=== PATIENT | female | born 1965 | race Caucasian/White ===

== ENCOUNTER 2017-01-16 23:08 | Emergency (ER) | payer OTHER ==
[~2017-01-16] VITALS: Ht 157.5 cm; Wt 91.0 kg
[2017-01-16 23:15] VITALS: Ht 157.5 cm; Wt 91.0 kg
[2017-01-17] MEDS ORDERED: ALBUTEROL 0.083% (NEB) 2.5 MG/3 ML AMP NEB STA ×2 (03:04)
[2017-01-17] MEDS ORDERED: predniSONE 20 MG TAB PO STA (03:04)
--- NOTE | 2017-01-17 03:14 | ERD ---
ER Documentation Chief Complaint Date/Time DATE: 01/17/17 TIME: 03:07 Chief Complaint cough x 1 week HPI 52-year-old female presents to the emergency department today with 3 day history of cough wheezing intermittent fever laryngitis body aches and headache. Patient reports that she has been coughing so hard she lost her voice. Patient reports that cough is not productive, denies history of seasonal allergies or asthma. Patient has not used an inhaler in the past. Denies chest pain, palpitations, shortness of breath or dizziness. ROS All systems reviewed and are negative except as per history of present illness. Medications Home Meds Active Scripts Albuterol Sulfate* (Ventolin HFA*) 18 Gm Hfa.aer.ad, 2 PUFF INHALATION Q4H, #1 INHALER Prov:WIN,CLARE 01/17/17 Prednisone* (Prednisone*) 20 Mg Tab, 40 MG PO DAILY for 4 Days, TAB Prov:WIN,CLARE 01/17/17 Allergies Allergies: Coded Allergies: No Known Allergy (Unverified , 01/16/17) PMhx/Soc History of Surgery: Yes () Anesthesia Reaction: No Hx Neurological Disorder: No Hx Respiratory Disorders: No Hx Cardiac Disorders: No Hx Psychiatric Problems: No Hx Miscellaneous Medical Probl: Yes (diabetes 2) Hx Alcohol Use: No Hx Substance Use: No Hx Tobacco Use: No Smoking Status: Never smoker Physical Exam Vitals Vital Signs Date Time Temp Pulse Resp B/P Pulse Ox O2 Delivery O2 Flow Rate FiO2 01/17/17 03:41 67 18 97 21 01/16/17 23:15 98.3 75 20 134/63 98 Vitals stable, triage notes reviewed Physical Exam Const: No acute distress Head: Atraumatic Eyes: Normal Conjunctiva, PERRLA, EOMI ENT: Tympanic membranes not visualized, cerumen impaction bilaterally. Nasal mucosa is edematous +2, pharynx injected, tonsils not visualized, mucous membranes moist Neck: Full range of motion..~ No meningismus. No cervical chain nodes Resp: Chest rises and falls symmetrically, wheezes with forced expiration, no egophony Cardio: Regular rate and rhythm, no murmurs Abd: Skin: Back: Ext: Neur: Awake and alert Psych: Normal Mood and Affect Results 24 hrs Current Medications Medications (Trade) Dose Ordered Sig/Ashley Route PRN Reason Start Time Stop Time Status Last Admin Dose Admin Albuterol (Proventil 0.083% (Neb)) 2.5 mg ONCE STAT NEB 01/17/17 03:04 01/17/17 03:08 DC 01/17/17 03:44 Albuterol (Proventil 0.083% (Neb)) 5 mg ONCE STAT NEB 01/17/17 03:04 01/17/17 03:40 DC Prednisone (Prednisone) 60 mg ONCE STAT PO 01/17/17 03:04 01/17/17 03:08 DC 01/17/17 04:13 Acetaminophen (Tylenol Tab) 650 mg ONCE ONCE PO 01/17/17 03:30 01/17/17 03:31 DC 01/17/17 04:13 Ipratropium [place] (Atrovent 0.02% (Neb)) 0.5 mg ONCE ONCE HHN 01/17/17 04:00 01/17/17 04:01 DC 01/17/17 03:44 Procedures/MDM This pleasant 52-year-old female presents to emergency department with 3 day history cough, wheezing, symptoms worse with lying down. Laryngitis, body aches. Patient reports that she is coughs so hard she has lost her voice. Differential diagnosis includes but not limited to pneumonia, bronchitis, wheezy bronchitis, flulike symptoms. Physical exam and history does not support pneumonia, no egophony or fever x-rays will not be obtained today. Patient receives albuterol, Atrovent unit dose hand-held nebulizer treatment, post evaluation presents with decreased wheezing, patient received 60 mg of prednisone and plan to be discharged home on 40 mg prednisone 4 days and albuterol MDI. I feel patient is appropriate for outpatient management follow- up with primary care physician. Increase fluids, increase rest, return to emergency room for fever, cough not responding to treatment. I feel the patient is stable for discharge at this time. I have discussed results, examination findings, the treatment plan with the patient and family present prior to discharge. Indications for emergent reevaluation, side effects of medication were also discussed. All questions were answered. Patient verbalizes understanding and agrees with plan of care. Departure Diagnosis: Primary Impression: Bronchitis Condition: Good Patient Instructions: Acute Bronchitis [facility] Additional Instructions: Thank you for for coming to [facility] for your care today. Please ask your nurse or provider if you have questions about your care today and do not leave until all your questions have been answered. Please use any medications given as directed and follow-up with your doctor (or the doctor you were referred to) in the next 2-3 days. If you do not have a primary care doctor you may follow up at the [facility] (listed below). You may also use motrin and tylenol as needed for fever and/or pain unless instructed otherwise by your provider or nurse. Indications for more urgent follow-up have been discussed, but you may return to the Emergency Department at ANY time for any worrisome or worsening symptoms. If you have abdominal pain, please know that no test or exam you received is perfect and you should follow up within 8 hours for continued pain. If you had any imaging studies today, such as an X-Ray or CT Scan, these studies will be reviewed later by a radiologist. You will be called if there are important findings that were not identified today, so make sure the contact information you provided at registration is correct. If you received any narcotic pain control medicine today, such as Vicodin, Morphine or Dilaudid, your coordination and judgment may be affected for a number of hours. Please do not drive or operate heavy machinery, and you may want someone to assist you at home. If you were given a prescription for narcotic medication, be aware that it is very addictive- use sparingly and only if necessary. CLARE WALDEN Jan 17, 2017 03:14
[2017-01-17] MEDS ORDERED: ALBU18HF INHALATION (03:15)
[2017-01-17] MEDS ORDERED: PRED20TA PO (03:15)
[2017-01-17] MEDS ORDERED: ACETAMINOPHEN 325 MG TAB PO ONE (03:30)
[2017-01-17] MEDS ORDERED: IPRATROPIUM (NEB) 0.5 MG/2.5 ML AMP HHN ONE (04:00)
[2017-01-17 05:12] VITALS: BP 128/70; PULSE 89; RESP 20; TEMP 98
== END 2017-01-17 05:12 | disposition home or self-care (01) ==
LOC: FTE 23:08
DX: J40 Bronchitis, not specified as acute or chronic (principal); E11.9 Type 2 diabetes mellitus without complications
CPT/HCPCS: 94664; J7512; Z7610

== ENCOUNTER 2018-01-24 09:32 | Emergency (ER) | END 2018-01-24 10:28 | disposition home or self-care (01) ==

== ENCOUNTER 2018-06-11 12:07 | Day surgery (SDC) | END 2018-06-11 17:51 | disposition home or self-care (01) ==

== ENCOUNTER 2018-06-12 11:32 | Emergency (ER) | END 2018-06-12 14:42 | disposition home or self-care (01) ==

== ENCOUNTER 2019-02-12 12:53 | Emergency (ER) | payer OTHER ==
[~2019-02-12] VITALS: Ht 160 cm; Wt 94.0 kg
[~2019-02-12 12:53] MED LIST: HYDR-4011 PO; NAPR-985 PO; VITAMIN D2
[2019-02-12 12:57] VITALS: Ht 160 cm; Wt 94.0 kg
[2019-02-12] MEDS ORDERED: FLUT9.9S NASAL (14:20)
--- NOTE | 2019-02-12 14:34 | ERD ---
ER Documentation Chief Complaint Chief Complaint C/o spit brownish secretion in the morning on and off. Ankur hernandez HPI 54-year-old female otherwise healthy presents to the emergency room with symptoms since November. She states that every morning she wakes up she has some brownish nasal congestion that she spits out. This occurs once when she wakes up in the morning and then does not occur during the rest of the day. The patient denies any other bleeding or bruising, no easy gum bleeding. Patient has no other complaints. Patient denies any hemoptysis, hematemesis, abdominal pain, melena or any other symptoms. ROS All systems reviewed and are negative except as per history of present illness. Medications Home Meds Active Scripts Fluticasone Propionate (Flonase Allergy Relief) 9.9 Ml [place].susp, 1 SPRAY NASAL DAILY for 7 Days, #1 BOTTLE TO EACH NOSTRIL Prov:ROMERO KENT MD 02/12/19 Hydrocodone/Acetaminophen ([place] 5-325 Tablet) 1 Each Tablet, 1 TAB PO Q6H PRN for PAIN, #7 TAB Prov:ANDRES VALDEZ MD 06/12/18 Naproxen* (Naprosyn*) 500 Mg Tablet, 500 MG PO BID PRN for PAIN AND/OR INFLAMMA TION, #30 TAB Prov:MELY WILLIAMSON PA-C 01/24/18 Reported Medications [Vitamin D2] No Conflict Check 06/11/18 Allergies Allergies: Coded Allergies: No Known Allergy (Unverified , 06/11/18) PMhx/Soc History of Surgery: Yes (GALLSTONE REMOVAL) Anesthesia Reaction: No Hx Neurological Disorder: No Hx Respiratory Disorders: No Hx Cardiac Disorders: No Hx Psychiatric Problems: No Hx Miscellaneous Medical Probl: No Hx Alcohol Use: No Hx Substance Use: No Hx Tobacco Use: No Smoking Status: Never smoker FmHx Family History: No diabetes Physical Exam Vitals Vital Signs Date Temp Pulse Resp B/P (MAP) Pulse Ox O2 O2 Flow FiO2 Time Delivery Rate 02/12/19 73 16 128/72 100 Room Air 13:54 (90) 02/12/19 98.3 79 18 145/91 97 12:57 (109) Physical Exam General: Well developed, well nourished, no acute distress Head: Normocephalic, atraumatic. Eyes: EOM intact ENT: Moist mucous membranes, no significant nasal drainage or discharge Neck: Full ROM Respiratory: No respiratory distress Cardiovascular: Well perfused distally Abdominal: Nondistended : Deferred MSK: No edema, no unilateral swelling, 5/5 strength Neurologic: Alert and oriented, moving all extremities, normal speech, steady gait Skin: No rash, no petechia or purpura Psych: Normal mood Procedures/MDM The patient is describing and showing me a picture very consistent with what appears to be upper airway dried blood. This is possibly secondary to dryness of the mucous membranes. Patient exhibits no signs or symptoms concerning for systemic coagulopathy. She is not describing hemoptysis or hematemesis. Patient is exquisitely well-appearing in the emergency room setting. I offered laboratory testing such as CBC, platelets for the patient would like to defer. I believe this is reasonable and of little utility in this emergency room setting. The patient was advised to follow-up with primary care physician and if needed follow-up with ENT provider for further evaluation. I advised a trial of humidifier and Vaseline to see if this makes any difference. The patient does not have an identifiable emergent medical condition that warrants inpatient hospitalization at this time. The patient is deemed safe for discharge with outpatient follow-up. We discussed follow up with the patient's primary care doctor within 24 to 48 hours as needed. We also discussed return to the emergency room for worsening symptoms or worsening condition. Patient's blood pressure was elevated (>120/80) but appears stable without evidence of hypertensive emergency or urgency. The patient was counseled about the risks of hypertension and urged to pursue outpatient monitoring and therapy within a week with their primary care physician. Outpatient referral: ENT Discharge Medications: Flonase Departure Diagnosis: Primary Impression: Nasal congestion Condition: Good Patient Instructions: Epistaxis (Adult) Referrals: [facility] YOU HAVE RECEIVED A MEDICAL SCREENING EXAM AND THE RESULTS INDICATE THAT YOU DO NOT HAVE A CONDITION THAT REQUIRES URGENT TREATMENT IN THE EMERGENCY DEPARTMENT. FURTHER EVALUATION AND TREATMENT OF YOUR CONDITION CAN WAIT UNTIL YOU ARE SEEN IN YOUR DOCTORS OFFICE WITHIN THE NEXT 1-2 DAYS. IT IS YOUR RESPONSIBILITY TO MAKE AN APPOINTMENT FOR FOLOW-UP CARE. IF YOU HAVE A PRIMARY DOCTOR --you should call your primary doctor and schedule an appointment IF YOU DO NOT HAVE A PRIMARY DOCTOR YOU CAN CALL OUR PHYSICIAN REFERRAL HOTLINE AT IF YOU CAN NOT AFFORD TO SEE A PHYSICIAN YOU CAN CHOSE FROM THE FOLLOWING [facility] [address] [place] [facility] [address] [facility] [address] [facility] [address] [facility] [address] [facility]. [facility] [address] [facility]. [facility] YOU HAVE RECEIVED A MEDICAL SCREENING EXAM AND THE RESULTS INDICATE THAT YOU DO NOT HAVE A CONDITION THAT REQUIRES URGENT TREATMENT IN THE EMERGENCY DEPARTMENT. FURTHER EVALUATION AND TREATMENT OF YOUR CONDITION CAN WAIT UNTIL YOU ARE SEEN IN YOUR DOCTORS OFFICE WITHIN THE NEXT 1-2 DAYS. IT IS YOUR RESPONSIBILITY TO MAKE AN APPOINTMENT FOR FOLOW-UP CARE. IF YOU HAVE A PRIMARY DOCTOR --you should call your primary doctor and schedule and appointment IF YOU DO NOT HAVE A PRIMARY DOCTOR YOU CAN CALL OUR PHYSICIAN REFERRAL HOTLINE AT . IF YOU CAN NOT AFFORD TO SEE A PHYSICIAN YOU CAN CHOSE FROM THE FOLLOWING [facility]: [facility] [address] [place] [address] [facility] [address] [place] [address] [facility] [address] [place] [address] Additional Instructions: Call your primary care doctor TOMORROW for an appointment during the next 1 WEEK.Tell the job recruiter that you were referred from this facility.See the doctor sooner or return here if your condition worsens before your appointment time. ROMERO KENT MD February 12, 2019 14:34
[2019-02-12 14:35] VITALS: BP 132/79; PULSE 69; RESP 19
== END 2019-02-12 14:35 | disposition home or self-care (01) ==
LOC: E/R 12:53
DX: R09.81 Nasal congestion (principal)
CPT/HCPCS: 99283